=== PATIENT | female | born 1930 | race Caucasian/White ===

== ENCOUNTER → 2018-12-05 | Outpatient (CLI) | payer MEDICARE, MEDICAID ==
--- NOTE | 2018-12-05 17:53 | Diagnostic Imaging Report ---
INDICATION: Cough. Febrile. FINDINGS: PA and lateral chest. There is consolidated infiltrate in the left lower lobe with obscuration of the left hemidiaphragm consistent with some pleural effusion as well. Left upper lung is clear. The right lung is clear. Right costophrenic angle is sharp. Heart is mildly enlarged. No evidence of pneumothorax. IMPRESSION: 1. Findings are consistent with consolidated pneumonia left lower lobe with some small associated pleural effusion. Dictated by: Dictated on workstation # [id number]
== END ==
LOC: RAD FS 17:22
PROVIDERS: ATTEND Physician Assistant
DX: J90 Pleural effusion, not elsewhere classified (principal); R50.9 Fever, unspecified
CPT/HCPCS: 71046